=== PATIENT | female | born 1970 | race African-American/Black ===

== ENCOUNTER 2022-10-03 09:33 | Emergency (ER) | payer MEDICARE, BC ==
[~2022-10-03] VITALS: Ht 170.2 cm; Wt 136.1 kg
[2022-10-03 09:39] VITALS: BP 218/126; PULSE 82; RESP 16; TEMP 98.9; O2SAT 98
[2022-10-03] MEDS ORDERED: BACITRACIN ZINC OINT UDPKT TOP ONE (10:30)
[2022-10-03] MEDS ORDERED: CLIN-194 MT (11:29)
[2022-10-03] MEDS ORDERED: LIDOCAINE HCL/PF 1% 10 MG/ML 5ML VIAL INFIL ONE (11:30)
== END 2022-10-03 11:55 | disposition home or self-care (01) ==
LOC: ER 09:33
DX: H66.41 Suppurative otitis media, unspecified, right ear (principal); Z98.890 Other specified postprocedural states
CPT/HCPCS: 10060; 99282; J3490

== ENCOUNTER 2023-01-12 08:24 | Emergency (ER) | payer MEDICARE, MEDICAID, BC ==
[~2023-01-12] VITALS: Ht 170.2 cm; Wt 136.1 kg
[~2023-01-12 08:24] MED LIST: CLIN-194 MT
[2023-01-12 08:26] VITALS: PULSE 90
[2023-01-12 08:30] VITALS: BP 222/130; RESP 16; TEMP 98.2; O2SAT 99
[2023-01-12 09:16] LABS: BASOPHILS % 0.4 % (0.0-2.0); EOSINOPHILS % 1.3 % (0.0-5.0); HEMATOCRIT. 39.7 % (36.0-48.0); HEMOGLOBIN. 13.3 g/dL (12.0-16.0); LYMPHOCYTES % 31.9 % (20.0-50.0); MEAN CORPUSCULAR HEMOGLOBIN 29.3 pg (28.0-32.0); MEAN CORPUSCULAR HGB CONC 33.5 g/dL (31.0-37.0); MEAN CORPUSCULAR VOLUME 87.5 fL (81.0-99.0); MONOCYTES % 11.2 % (2.0-8.0); NEUTROPHILS % 55.2 % (40.0-76.0); PLATELET 258 x1000/uL (130-400); RED BLOOD CELL COUNT 4.53 mill/uL (4.2-5.4); RED CELL DISTRIBUTION WIDTH 14.5 % (11.6-14.6); WHITE BLOOD COUNT 5.9 x1000/uL (4.5-11.0)
[2023-01-12 10:02] LABS: ALANINE AMINOTRANSFERASE 10 IU/L (10-49); ALBUMIN 4.1 g/dL (3.2-4.8); ASPARTATE AMINOTRANSFERASE 20 IU/L (<34); BILIRUBIN TOTAL 0.8 mg/dL (0.1-1.0); CALCIUM 9.1 mg/dL (8.7-10.4); CARBON DIOXIDE 31 mEq/L (21-32); CHLORIDE 103 mEq/L (98-107); CREATININE 0.9 mg/dL (0.6-1.0); GLUCOSE 82 mg/dL (70-105); POTASSIUM 3.4 mEq/L (3.5-5.1); PROTEIN TOTAL 7.4 g/dL (6.0-8.3); SODIUM 141 mEq/L (136-145); UREA NITROGEN BLOOD 9 mg/dL (9-23)
== END 2023-01-12 12:06 | disposition left against medical advice (07) ==
LOC: ER 08:24
DX: R04.2 Hemoptysis (principal); Z53.21 Procedure and treatment not carried out due to patient leaving prior to being seen by health care provider; Z98.890 Other specified postprocedural states
CPT/HCPCS: 36415; 71045; 80053; 85025; 99284

== ENCOUNTER 2023-11-12 23:09 | Emergency (ER) | payer MEDICARE, MEDICAID ==
[~2023-11-12] VITALS: Ht 172.7 cm; Wt 131.0 kg
[2023-11-12 23:17] VITALS: TEMP 98.7; O2SAT 92
[2023-11-12 23:57] LABS: BASOPHILS % 0.5 % (0.0-2.0); EOSINOPHILS % 1.8 % (0.0-5.0); HEMATOCRIT. 33.5 % (36.0-48.0); HEMOGLOBIN. 11.2 g/dL (12.0-16.0); LYMPHOCYTES % 14.5 % (20.0-50.0); MEAN CORPUSCULAR HEMOGLOBIN 29.8 pg (28.0-32.0); MEAN CORPUSCULAR HGB CONC 33.4 g/dL (31.0-37.0); MEAN CORPUSCULAR VOLUME 89.2 fL (81.0-99.0); MEAN PLATELET VOLUME 9.5 fl (7.4-10.4); MONOCYTES % 8.8 % (2.0-8.0); NEUTROPHILS % 74.4 % (40.0-76.0); PLATELET 252 x1000/uL (130-400); RED BLOOD CELL COUNT 3.76 mill/uL (4.2-5.4); RED CELL DISTRIBUTION WIDTH 16.9 % (11.6-14.6); WHITE BLOOD COUNT 6.5 x1000/uL (4.5-11.0)
[2023-11-13 00:07] LABS: INR 1.1; PARTIAL THROMBOPLASTIN TIME 26.3 sec (23.4-31.0); PROTHROMBIN TIME 12.1 sec (9.6-11.0)
[2023-11-13 00:09] LABS: CARBON DIOXIDE 26 mEq/L (21-32); CHLORIDE 105 mEq/L (98-107); POTASSIUM 3.8 mEq/L (3.5-5.1); SODIUM 138 mEq/L (136-145)
[2023-11-13 00:11] LABS: CALCIUM 8.9 mg/dL (8.7-10.4)
[2023-11-13 00:15] LABS: GLUCOSE 135 mg/dL (70-105); TROPONIN I HIGH SENSITIVITY 13 ng/L (3.0-34); UREA NITROGEN BLOOD 13 mg/dL (9-23)
[2023-11-13] MEDS: HYDRALAZINE 20MG/ML VIAL IV ONE (00:27)
[2023-11-13 00:43] LABS: CREATININE 1.6 mg/dL (0.6-1.0)
[2023-11-13 00:44] LABS: ETHANOL BLOOD < 10 mg/dL (<10)
[2023-11-13] MEDS: THROMBIN TOP ONE (01:31)
[2023-11-13] MEDS ORDERED: LISINOPRIL 20MG TABLET PO NR (03:00)
[2023-11-13 03:01] VITALS: BP 190/102; PULSE 97; RESP 20; O2SAT 96
[2023-11-13] MEDS ORDERED: AMLO5TAB88 MT (03:07)
== END 2023-11-13 03:39 | disposition home or self-care (01) ==
LOC: ER 23:44
DX: I10 Essential (primary) hypertension (principal); R04.0 Epistaxis; Z98.890 Other specified postprocedural states
CPT/HCPCS: 80048; 80320; 83880; 83690; 85025; 85610; 85730; 84484; 36415; 71045; 93005; 99285; 96374; J0360; J3490; G0480